=== PATIENT | female | born 2000 | race Caucasian/White ===

== ENCOUNTER 2021-03-04 11:47 | Emergency (ER) | payer OTHER ==
[~2021-03-04] VITALS: Ht 149.9 cm; Wt 71.2 kg
[2021-03-04 12:00] VITALS: BP 120/77
--- NOTE | 2021-03-04 12:00 | NUR ---
PT AMBULATED TO BED 12.
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
[2021-03-04] MEDS ORDERED: cefTRIAXone 1,000 MG in LIDOCAINE MPF 1% 2.1 ML IM ONE (12:30)
[2021-03-04] MEDS ORDERED: cefTRIAXone 1,000 MG VIAL ONE (12:39)
[2021-03-04] MEDS ORDERED: LIDOCAINE MPF 1% 5 ML ONE (12:39)
[2021-03-04] MEDS ORDERED: AMOX500C25 PO (13:01)
[2021-03-04] MEDS ORDERED: IBUP-2213 PO (13:01)
--- NOTE | 2021-03-04 13:05 | NUR ---
Patient discharged with v/s stable. Written and verbal after care instructions given and explained. Patient alert, oriented and verbalized understanding of instructions. Ambulatory with steady gait. All questions addressed prior to discharge. ID band removed. Patient advised to follow up with PMD. Rx of Amoxicillin and Ibuprofen given. Patient educated on indication of medication including possible reaction and side effects. Opportunity to ask questions provided and answered.
[2021-03-04 13:08] VITALS: BP 120/77
== END 2021-03-04 13:05 | disposition home or self-care (01) ==
LOC: MED 11:47
DX: J02.8 Acute pharyngitis due to other specified organisms (principal); B96.89 Other specified bacterial agents as the cause of diseases classified elsewhere; H92.03 Otalgia, bilateral; Z79.899 Other long term (current) drug therapy
CPT/HCPCS: 96372; 99283; J0696; J2001

== ENCOUNTER 2023-04-21 08:44 | Emergency (ER) | payer OTHER ==
[~2023-04-21] VITALS: Ht 149.9 cm; Wt 90.7 kg
[~2023-04-21 08:44] MED LIST: AMOX500C25 PO; IBUP-2213 PO
[2023-04-21 08:49] VITALS: BP 128/72; PULSE 88; RESP 16; TEMP 98.5; O2SAT 98
--- NOTE | 2023-04-21 08:53 | NUR ---
Pt ambulatory to [facility] w steady gait.
[2023-04-21] MEDS ORDERED: DEXAMETHASONE 10 MG/ML VIAL IM ONE (10:05)
[2023-04-21] MEDS ORDERED: IBUPROFEN 400 MG TAB PO ONE (10:05)
[2023-04-21] MEDS ORDERED: PHEN177S23 PO (10:08)
--- NOTE | 2023-04-21 10:10 | NUR ---
STREP SAMPLES OBTAINED AND WALKED.
[2023-04-21 11:10] VITALS: BP 120/78; PULSE 80; RESP 20; TEMP 98.5; O2SAT 100
--- NOTE | 2023-04-21 11:10 | NUR ---
Patient discharged with v/s stable. Written and verbal after care instructions given and explained. Patient alert, oriented and verbalized understanding of instructions. Ambulatory with steady gait. All questions addressed prior to discharge. ID band removed. Patient advised to follow up with PMD. Rx of PHENOL (SENT) given. Patient educated on indication of medication including possible reaction and side effects. Opportunity to ask questions provided and answered. WORK NOTE GIVEN
== END 2023-04-21 11:10 | disposition home or self-care (01) ==
LOC: MED 08:44
DX: J03.90 Acute tonsillitis, unspecified (principal); Z79.899 Other long term (current) drug therapy; Z90.49 Acquired absence of other specified parts of digestive tract
CPT/HCPCS: 81025; 87081; 96372; 99283; J1100

== ENCOUNTER 2023-10-18 10:12 | Emergency (ER) | payer OTHER ==
[~2023-10-18] VITALS: Ht 149.9 cm; Wt 90.7 kg
[~2023-10-18 10:12] MED LIST changes: +AMOX1TAB8 PO; +MENT7.6L6 PO; +NITR100C7 PO; +PHEN177S23 PO
[2023-10-18 10:13] VITALS: BP 121/68; PULSE 80; RESP 18; TEMP 97.8; O2SAT 99
[2023-10-18 11:15] VITALS: BP 120/60; PULSE 82; RESP 19; TEMP 97.8; O2SAT 99
== END 2023-10-18 11:15 | disposition home or self-care (01) ==
LOC: MED 10:12
DX: R21 Rash and other nonspecific skin eruption (principal); L53.9 Erythematous condition, unspecified; L29.9 Pruritus, unspecified; Z79.899 Other long term (current) drug therapy; Z79.1 Long term (current) use of non-steroidal anti-inflammatories (NSAID); Z79.2 Long term (current) use of antibiotics
CPT/HCPCS: 99281

== ENCOUNTER 2023-11-27 03:15 | Emergency (ER) | payer OTHER ==
[~2023-11-27] VITALS: Ht 149.9 cm; Wt 93.4 kg
[~2023-11-27 03:15] MED LIST changes: +MENT7.6L13 PO; -MENT7.6L6 PO
[2023-11-27 03:36] VITALS: BP 141/58; RESP 16; TEMP 97.2; O2SAT 99
[2023-11-27 04:25] LABS: APPEARANCE,URINE CLEAR (CLEAR); BILIRUBIN,URINE NEGATIVE (NEGATIVE); BLOOD, URINE 1+ (NEGATIVE); COLOR,URINE YELLOW (YELLOW); LEUKOCYTE ESTERASE ,URINE TRACE (NEGATIVE); NITRITE, URINE NEGATIVE (NEGATIVE); PROTEIN,URINE NEGATIVE (NEGATIVE); UGLUCOSE NEGATIVE (NEGATIVE); UROBILINOGEN,URINE 0.2 EU/dL (0.2 - 1)
[2023-11-27 04:48] LABS: BACTERIA,URINE 1+ /HPF (None Seen); MUCUS,URINE 1+ /LPF (None Seen); RBC,URINE 0-5 /HPF (0-5); SQUAMOUS EPITHELIAL CELL,UR 4-10 (MOD) /LPF (0-3 (FEW)); WBC,URINE 0-5 /HPF (0-5); YEAST,URINE Rare /HPF (None Seen)
[2023-11-27 05:25] VITALS: TEMP 98.3
[2023-11-27 06:05] LABS: ALBUMIN 3.2 g/dL (3.4-5.0); TOTAL BILIRUBIN 0.1 mg/dL (0.0-1.0); TOTAL PROTEIN, SERUM 8.3 g/dL (6.4-8.2)
[2023-11-27 06:09] LABS: BASOPHILS % (AUTO) 0.5 % (0.0-2.0); EOSINOPHILS % (AUTO) 0.7 % (0.0-4.0); HEMATOCRIT 41.8 % (36-48); LYMPHOCYTES # (AUTO) 2.8 K/uL (2.5-16.5); LYMPHOCYTES % (AUTO) 44.2 % (20.5-51.1); MEAN CORPUSCULAR HEMOGLOBIN 30 pg (27-31); MEAN CORPUSCULAR HGB CONC 34 g/dL (33-37); MEAN CORPUSCULAR VOLUME 89.1 fL (80-94); MONOCYTES # (AUTO) 0.6 K/uL (0.8-1.0); MONOCYTES % (AUTO) 10.3 % (1.7-9.3); NEUTROPHILS # (AUTO) 2.8 K/uL (1.8-7.7); NEUTROPHILS % (AUTO) 44.3 % (42.2-75.2); PLATELET COUNT (AUTO) 309 K/uL (140-450); RED BLOOD CELL COUNT(AUTO) 4.69 MIL/uL (4.20-5.40); WHITE BLOOD COUNT (AUTO) 6.3 K/uL (4.8-10.8)
[2023-11-27 06:10] LABS: ANION GAP 10.2 (8-16); CARBON DIOXIDE 31.1 mmol/L (21-32); CREATININE 0.7 mg/dL (0.6-1.3); POTASSIUM 3.3 mmol/L (3.5-5.1)
[2023-11-27] MEDS ORDERED: NAPR-54 PO (06:38)
[2023-11-27 06:58] VITALS: BP 121/75; PULSE 55; O2SAT 100
== END 2023-11-27 06:58 | disposition home or self-care (01) ==
LOC: MED 03:15
DX: R10.31 Right lower quadrant pain (principal); Z79.899 Other long term (current) drug therapy
CPT/HCPCS: 36415; 80048; 80076; 81001; 81025; 83690; 85025; 99284